=== PATIENT | male | born 1955 | race Two or more races ===

== ENCOUNTER 2018-11-28 18:18 | Emergency (ER) | payer MEDICARE ==
[~2018-11-28] VITALS: Ht 170.2 cm; Wt 86.2 kg
[2018-11-28 19:01] VITALS: BP 156/67
[2018-11-28] MEDS ORDERED: HYDROcodone/APAP 5/325MG 1 TAB TABLET PO ONE (19:30)
[2018-11-28] MEDS ORDERED: CEPH-264 PO (19:48)
[2018-11-28] MEDS ORDERED: HYDR-2761 PO (19:48)
--- NOTE | 2018-11-28 19:49 | PHYS DOC ---
Past Medical History Past Medical History: No Pertinent History (JOSEPH MUNSON APRN) Past Surgical History: No Surgical History (JOSEPH MUNSON APRN) Alcohol Use: None Drug Use: None (JOSEPH MUNSON APRN) Adult General Chief Complaint Chief Complaint: ANKLE PROBLEM HPI HPI Patient is a 63 year old male, accompanied by his significant other, with complaints of R ankle pain for the last 3 days. He reports that today he noticed a blister on his R medial heel and reports that the skin on his lower leg has been warm to touch and red. Pt states that the blister was caused by ill fitting high top sneakers that he had been wearing. Patient denies any purulent drainage sites, states that today the blister has drained some clear fluid onto a bandage. He denies any fevers or any known injury. Patient states he may have twisted his ankle 3 days ago when he was doing yard work but he is unsure of the specific injury. Currently, he rates his pain a 9 out of 10 on the pain scale, there are no alleviating factors, the pain is exacerbated with palpation and movement. (JOSEPH MUNSON APRN) Review of Systems Review of Systems Constitutional: Denies fever or chills [] Cardiovascular: No additional information not addressed in HPI [] Musculoskeletal: See HPI Integument: See HPI Neurologic: Denies headache, focal weakness or sensory changes [] Complete systems were reviewed and found to be within normal limits, except as documented in this note. (JOSEPH MUNSON APRN) Current Medications Current Medications Current Medications Medications (Trade) Dose Ordered Sig/Valentina Start Time Stop Time Status Last Admin Dose Admin Acetaminophen/ Hydrocodone Bitart (Lortab 5/325) 1 tab 1X ONCE 11/28/18 19:30 11/28/18 19:31 DC 11/28/18 19:38 1 TAB (YULI SIMEON DO) Allergies Allergies Allergies Coded Allergies Type Severity Reaction Last Updated Verified No Known Drug Allergies 11/28/18 No (YULI SIMEON DO) Physical Exam Physical Exam Constitutional: Well developed, well nourished, no acute distress, non-toxic appearance. [] HENT: Normocephalic, atraumatic, bilateral external ears normal, oropharynx moist, no oral exudates, nose normal. [] Eyes: conjunctiva normal, no discharge. [] Neck: Normal range of motion, no tenderness, supple, no stridor. [] Cardiovascular:Heart rate regular rhythm Lungs & Thorax: Respirations even and unlabored, no retractions, no respiratory distress[] Skin: Warm, dry; 1+ edema with erythema noted to R ankle and RLE consistent with cellulitis Extremities: no cyanosis, no clubbing, ROM intact, 1+ edema R ankle, RLE TTP Neurologic: Alert and oriented X 3, normal motor function, normal sensory function, no focal deficits noted. [] Psychologic: Affect normal, judgement normal, mood normal. [] (JOSEPH MUNSON APRN) Current Patient Data Vital Signs Vital Signs Date Time Temp Pulse Resp B/P (MAP) Pulse Ox O2 Delivery O2 Flow Rate FiO2 11/28/18 19:01 97.6 76 18 156/67 (96) 99 Room Air 97.6 (YULI SIMEON DO) EKG EKG [] (JOSEPH MUNSON APRN) Radiology/Procedures Radiology/Procedures [] R ankle x-ray negative for acute findings or fracture read by Dr. simeon. (JOSEPH MUNSON APRN) Course & Med Decision Making Course & Med Decision Making Pertinent Labs and Imaging studies reviewed. (See chart for details) dx: cellulitis ddx: ankle fracture Xray negative for acute findings or fracture. 1935-Spoke with patient and offered admission for IV antibiotics, pt would like to try outpatient tx at home. Pt advised to return to ER if fever develops or redness increases past the outline drawn by nurse in the ER. Prescriptions writ ten for keflex 500 QID and hydrocodone. []Patient verbalized an understanding of home care, medications, follow-up, and return to ED instructions and was in agreement with the plan of care. (JOSEPH MUNSON APRN) Dragon Disclaimer Dragon Disclaimer This electronic medical record was generated, in whole or in part, using a voice recognition dictation system. (JOSEPH MUNSON APRN) Departure Departure Impression: Primary Impression: Cellulitis of right lower extremity Disposition: HOME, SELF-CARE Condition: STABLE Referrals: NO PCP (PCP) Patient Instructions: Cellulitis, [id number] Additional Instructions: Fill prescription(s) and use as directed. Recommend application of ice, elevation, and rest of affected extremity. Follow-up with your primary care doctor next week, return to the ER if your symptoms worsen or if fever develops. Scripts Hydrocodone Bit/Acetaminophen (HYDROCODONE-APAP 5-325 ) 1 Tab Tablet 1 TAB PO PRN Q6HRS PRN for PAIN for 3 Days, #12 TAB 0 Refills Prov: JOSEPH MUNSON APRN 11/28/18 Cephalexin (KEFLEX) 500 Mg Capsule 500 MG PO QID for 7 Days, #28 CAP 0 Refills Prov: JOSEPH MUNSON APRN 11/28/18 Attending Signature Attending Signature I have reviewed the PA/FELTER TENNIS BALLS's note and plan of care. I was available for consultation as needed during the patient's visit in the emergency department. I agree with the clinical impression, plan, and disposition. (YULI SIMEON DO) JOSEPH MUNSON APRN Nov 28, 2018 19:49 YULI SIMEON DO Nov 28, 2018 22:26
--- NOTE | 2018-11-29 09:15 | RAD ---
EXAM: RIGHT ANKLE 3 VIEWS. HISTORY: Right ankle pain and swelling. COMPARISON: None. FINDINGS: Three views of the right ankle are obtained. No fractures are identified. Changes of a chronic ligamentous injury are suspected medially. There is soft tissue swelling medially. Alignment is normal. Joint spaces are maintained. There is a small plantar calcaneal spur. Atherosclerotic calcifications are noted. IMPRESSION: 1. Soft tissue swelling medially. No acute fracture. Electronically signed by: Roel Jenkins MD (11/29/2018 9:12 AM) [facility]
== END 2018-11-28 20:01 | disposition home or self-care (01) ==
LOC: ER 18:18
DX: L03.115 Cellulitis of right lower limb (principal)
CPT/HCPCS: 73610; 99284-25

== ENCOUNTER 2020-02-06 11:34 | Emergency (ER) | payer MEDICARE ==
[~2020-02-06] VITALS: Ht 170.2 cm; Wt 86.3 kg
[~2020-02-06 11:34] MED LIST: CEPH-264 PO; HYDR-2761 PO
[2020-02-06 11:55] VITALS: BP 166/80
[2020-02-06] MEDS ORDERED: POLY10DR RIGHTEYE (12:16)
[2020-02-06] MEDS ORDERED: HYDR-3164 PO (12:16)
--- NOTE | 2020-02-06 12:16 | PHYS DOC ---
Past Medical History Past Medical History: No Pertinent History Past Medical History cellulitis Past Surgical History: No Surgical History Smoking Status: Never Smoker Alcohol Use: None Drug Use: None General Adult EDM: Chief Complaint: EYE PROBLEMS HPI: HPI: Patient is a 64 year old who was working with wood and large piece of wood flew up and hit him in the right eye. This happened just prior to arrival. Patient complains of right a pain that is severe intensity and worse with light. Patient also has some blurry vision associated with this. Patient denies any other injuries. No loss of consciousness. Pain is described as a discomfort and nonradiating Review of Systems: Review of Systems: Constitutional: Well developed, well nourished, no acute distress, non-toxic appearance. HENT: No trismus, external ears normal Eyes: Right conjunctiva injected. Pupils equal round reactive to light. Extraocular motions are intact. The right eyelid was everted and no foreign body seen. Tetracaine and fluorescein was applied to the right eye. There is a negative Gallito sign. No evidence of globe rupture. There is a sizable irregular shaped corneal abrasion medially and on the middle of the cornea. Neck: Normal range of motion, no tenderness, supple, no stridor. Cardiovascular: Regular rate/rhythm, peripheral pulse intact, PRODUCTION TECHNOLOGIST intact Lungs & Thorax: No respiratory distress Abdomen: No distension Skin: Diffuse: Intact, no rash Back: Full ROM Extremities: Normal inspection, no edema Neurologic: Alert and oriented X 3, normal motor function, , no focal deficits noted. Psychologic: Affect normal, judgement normal, mood normal. Heart Score: Risk Factors: Risk Factors: DM, Current or recent (<one month) smoker, HTN, HLP, family history of CAD, obesity. Risk Scores: Score 0 - 3: 2.5% MACE over next 6 weeks - Discharge Home Score 4 - 6: 20.3% MACE over next 6 weeks - Admit for Clinical Observation Score 7 - 10: 72.7% MACE over next 6 weeks - Early Invasive Strategies Current Medications: Current Medications Medications (Trade) Dose Ordered Sig/Valentina Start Time Stop Time Status Last Admin Dose Admin Fluorescein Sodium (Ful-Za) 1 strip 1X ONCE 02/06/20 12:30 02/06/20 12:31 02/06/20 12:07 1 STRIP Tetracaine HCl (Tetracaine) 1 drop 1X ONCE 02/06/20 12:30 02/06/20 12:31 02/06/20 12:07 1 DROP Allergies: Allergies: Allergies Coded Allergies Type Severity Reaction Last Updated Verified I S O L A T I O N *CONTACT* Allergy Unknown 12/08/18 Yes No Known Medication Allergies Allergy Unknown 12/08/18 Yes Physical Exam: PE: Constitutional: Well developed, well nourished, no acute distress, non-toxic appearance. [] HENT: Normocephalic, atraumatic, bilateral external ears normal, oropharynx moist, no oral exudates, nose normal. [] Eyes: PERRLA, EOMI, conjunctiva normal, no discharge. [] Neck: Normal range of motion, no tenderness, supple, no stridor. [] Cardiovascular:Heart rate regular rhythm, no murmur [] Lungs & Thorax: Bilateral breath sounds clear to auscultation [] Abdomen: Bowel sounds normal, soft, no tenderness, no masses, no pulsatile masses. [] Skin: Warm, dry, no erythema, no rash. [] Back: No tenderness, no CVA tenderness. [] Extremities: No tenderness, no cyanosis, no clubbing, ROM intact, no edema. [] Neurologic: Alert and oriented X 3, normal motor function, normal sensory function, no focal deficits noted. [] Psychologic: Affect normal, judgement normal, mood normal. [] EKG: EKG: [] Radiology/Procedures: Radiology/Procedures: [] Course & Med Decision Making: Course & Med Decision Making Pertinent Labs and Imaging studies reviewed. (See chart for details) [] 64-year-old male presents with a corneal abrasion. No evidence of globe rupture. Patient will be placed on topical antibiotics and pain medicine. Return precautions given. Patient will need to follow-up with industrial locomotive operator. Kimani Disclaimer: Kimani Disclaimer: This electronic medical record was generated, in whole or in part, using a voice recognition dictation system. Departure Departure Impression: Primary Impression: Injury of conjunctiva and corneal abrasion of right eye w/o FB Disposition: 01 HOME, SELF-CARE Condition: STABLE Referrals: NO PCP (PCP) Daysi MORA MD 2-3 days Patient Instructions: Eye - Corneal Abrasion Additional Instructions: EMERGENCY DEPARTMENT GENERAL DISCHARGE INSTRUCTIONS THANK YOU for coming to [facility] Emergency Department (ED) today and trusting us with your care. We trust that you had a positive experience in our Emergency Department. If you wish to speak to the department Management you can contact the export traffic department manager at . YOUR FOLLOW UP INSTRUCTIONS ARE FOLLOWS: Do you have a private doctor? If you do not have a private doctor, please ask for a resource list of physicians or clinics that may be able to assist you with follow up care. The Emergency Physician has interpreted your x-rays. The X-ray specialist will also review them. If there is a change in the findings you will be notified in 48 hours when at all possible. A lab test or lab culture may have been done, your results will be reviewed and you will be notified if you need a change in treatment. ADDITIONAL INSTRUCTIONS AND INFORMATION Your care today has been supervised by a physician who is specially trained in emergency care. Many problems require more than one evaluation for a complete diagnosis and treatment. We recommend that you schedule your follow up appointment as recommended to ensure complete treatment of your illness or injury. If you are unable to obtain follow up care and continue to have a problem, or if your condition worsens we recommend that you return to the ED. We are not able to safely determine your condition over the phone nor are we able to give sound medical advice over the phone. For these safety reasons, if you call for medical advice we will ask you to come to the ED for further evaluation If you have any questions regarding these discharge instructions please call the ED at . SAFETY INFORMATION In the interest of safety, wellness, and injury prevention; we encourage you to wear your seatbelt, if you smoke; quit smoking, and we encourage your family to use protective helmet for bicycling and other sporting events that present an increased risk for head injury. IF YOUR SYMPTOMS WORSEN OR NEW SYMPTOMS DEVELOP, OR YOU HAVE CONCERNS ABOUT YOUR CONDITION; OR IF YOUR CONDITION WORSENS WHILE YOU ARE WAITING FOR YOUR FOLLOW UP APPOINTMENT; EITHER CONTACT YOUR PRIMARY CARE DOCTOR, THE PHYSICIAN WHOSE NAME AND NUMBER YOU WERE GIVEN, OR RETURN TO THE ED IMMEDIATELY. Scripts Hydrocodone/Apap 5-325 (NORCO 5-325 TABLET) 1 Each Tablet 1-2 EACH PO PRN Q6HRS PRN for PAIN, #15 as needed for pain Prov: JONAS MANCIA MD 02/06/20 Polymyxin B Sulf/Trimethoprim (POLYTRIM EYE DROPS) 10 Ml Drops 1 DROP RIGHTEYE Q6HRS, #10 ML Prov: JONAS MANCIA MD 02/06/20 Justicifation of Admission Dx: Justifications for Admission: Justification of Admission Dx: N/A JONAS MANCIA MD Feb 06, 2020 12:16
[2020-02-06] MEDS ORDERED: TETRACAINE 0.5% OPHTH SOLUTION 4ML BOTTLE. OD ONE (12:30)
[2020-02-06] MEDS ORDERED: FLUORESCEIN OPHTH TEST STRIP. OD ONE (12:30)
== END 2020-02-06 12:21 | disposition home or self-care (01) ==
LOC: ER 11:34
DX: S05.01XA Injury of conjunctiva and corneal abrasion without foreign body, right eye, initial encounter (principal); H53.8 Other visual disturbances; Y29.XXXA Contact with blunt object, undetermined intent, initial encounter; Y93.89 Activity, other specified; Y92.89 Other specified places as the place of occurrence of the external cause; Y99.0 Civilian activity done for income or pay
CPT/HCPCS: 99283

== ENCOUNTER 2020-06-24 09:05 | Emergency (ER) | payer MEDICAID, MEDICARE ==
[~2020-06-24] VITALS: Ht 170.2 cm; Wt 84.0 kg
[~2020-06-24 09:05] MED LIST changes: +HYDR-3164 PO; +POLY10DR RIGHTEYE
--- NOTE | 2020-06-24 09:39 | RAD ---
EXAM: Left shoulder, 3 views. HISTORY: Pain. COMPARISON: None. FINDINGS: 3 views of the left shoulder obtained. There is no fracture, dislocation or subluxation. IMPRESSION: No acute osseous finding. Electronically signed by: Florencia Moya MD (06/24/2020 9:34 AM) [id number]
--- NOTE | 2020-06-24 09:57 | PHYS DOC ---
Past Medical History Past Medical History: Hypertension, Other Additional Past Medical Histor: cellulitis Past Surgical History right ankle Smoking Status: Never Smoker Alcohol Use: None Drug Use: None General Adult EDM: Chief Complaint: SHOUDLER HPI: HPI: 65-year-old male presenting with left shoulder pain. He describes the pain is a throbbing aching pain. He has been sleeping on a cot over the past week. This morning he reports muscular stiffness of the shoulder and neck musculature. He denies any chest pain or shortness of breath. He does have a history of hypertension and takes lisinopril hydrochlorothiazide combo pill but has been not taking it for about 6 months. He denies nausea vomiting or diaphoresis. The pain is nonradiating. Review of systems negative for abdominal pain vomiting diaphoresis fevers or chills. All other review of systems negative. ED course: 65-year-old male presenting with left shoulder pain. X-rays unremarkable. His blood pressure was quite high on arrival. We gave him some lisinopril. EKG and blood work ordered. Blood work unremarkable. EKG shows sinus rhythm with a regular rate. ST segments show mild nonspecific repolariz ation abnormalities in lead V2 and V3. Not suggestive of acute ischemia. Blood work unremarkable. Troponin within normal limits. On reevaluation the patient continues to not have any chest pain. His pain is in the musculature which is tender to palpation along the trapezius muscle. We will discharge him with some oral hydrocodone and Flexeril and have him follow-up with his doctor in 1 to 2 days. He is to return for worsening pain or the development of new chest pain or shortness of breath or any other concerns. Heart Score: Risk Factors: Risk Factors: DM, Current or recent (<one month) smoker, HTN, HLP, family history of CAD, obesity. Risk Scores: Score 0 - 3: 2.5% MACE over next 6 weeks - Discharge Home Score 4 - 6: 20.3% MACE over next 6 weeks - Admit for Clinical Observation Score 7 - 10: 72.7% MACE over next 6 weeks - Early Invasive Strategies Current Medications: Current Medications Medications (Trade) Dose Ordered Sig/Valentina Start Time Stop Time Status Last Admin Dose Admin Lisinopril (Prinivil) 10 mg 1X ONCE 06/24/20 10:00 06/24/20 10:01 UNV Allergies: Allergies: Allergies Coded Allergies Type Severity Reaction Last Updated Verified I S O L A T I O N *CONTACT* Allergy Unknown 12/08/18 Yes No Known Medication Allergies Allergy Unknown 12/08/18 Yes Physical Exam: PE: Constitutional: Well developed, well nourished, no acute distress, non-toxic appearance. [] HENT: Normocephalic, atraumatic, bilateral external ears normal, oropharynx moist, no oral exudates, nose normal. [] Eyes: PERRLA, EOMI, conjunctiva normal, no discharge. [] Neck: Normal range of motion, no tenderness, supple, no stridor. [] Cardiovascular:Heart rate regular rhythm, no murmur [] Lungs & Thorax: Bilateral breath sounds clear to auscultation [] Abdomen: Bowel sounds normal, soft, no tenderness, no masses, no pulsatile masses. [] Skin: Warm, dry, no erythema, no rash. [] Back: No tenderness, no CVA tenderness. [] Extremities: The patient's left shoulder has tenderness along the musculature of the trapezius muscle. Nontender on the bony prominences. No traumatic injuries. No abrasions lacerations or ecchymosis. Nontender clavicle. Palpable pulse distally with 2-second cap refill. Normal motor and sensory function of the hand. Nontender elbow. Nontender wrist. The remainder the extremities are nontender with normal range of motion and neurovascularly intact. Neurologic: Alert and oriented X 3, normal motor function, normal sensory function, no focal deficits noted. [] Psychologic: Affect normal, judgement normal, mood normal. [] Current Patient Data: Vital Signs: Vital Signs Date Time Temp Pulse Resp B/P (MAP) Pulse Ox O2 Delivery O2 Flow Rate FiO2 06/24/20 09:14 97.9 80 16 224/105 (144) 99 Room Air 97.9 EKG: EKG: [] Radiology/Procedures: Radiology/Procedures: [] Course & Med Decision Making: Course & Med Decision Making Pertinent Labs and Imaging studies reviewed. (See chart for details) [] Dragon Disclaimer: Dragon Disclaimer: This electronic medical record was generated, in whole or in part, using a voice recognition dictation system. Departure Departure Impression: Primary Impression: Left shoulder pain Disposition: 01 DC HOME SELF CARE/HOMELESS Condition: STABLE Referrals: JAYDE VASQUEZ D.O. (PCP) Patient Instructions: Shoulder Pain Additional Instructions: Follow-up with your primary physician in 1 to 2 days. Return to the emergency department if you have any new or concerning findings. Scripts Cyclobenzaprine Hcl (CYCLOBENZAPRINE HCL) 5 Mg Tablet 1 TAB PO PRN BID PRN for PAIN, #10 TAB Prov: JERRY RUIZ MD 06/24/20 Hydrocodone Bit/Acetaminophen (HYDROCODONE-APAP 5-325 ) 1 Tab Tablet 1 TAB PO PRN Q8HRS PRN for SEVERE PAIN, #8 TAB 0 Refills Prov: JERRY RUIZ MD 06/24/20 JERRY RUIZ MD Jun 24, 2020 09:57
[2020-06-24] MEDS ORDERED: LISINOPRIL 10 MG TABLET PO ONE (10:00)
--- NOTE | 2020-06-24 10:12 | RAD ---
EXAM: Chest, single view. HISTORY: Chest pain. COMPARISON: None. FINDINGS: A frontal view of the chest is obtained. There is no infiltrate, pleural effusion or pneumo thorax. The heart is normal in size. IMPRESSION: No acute pulmonary finding. Electronically signed by: Florencia Moya MD (06/24/2020 10:08 AM) [id number]
[2020-06-24 11:00] LABS: BASO % 1 % (0-3); EOS # 0.2 x10^3/uL (0.0-0.7); EOS % 3 % (0-3); HEMATOCRIT 44.5 % (39.0-53.0); LYMPH # 0.9 x10^3/uL (1.0-4.8); LYMPH % 13 % (24-48); MEAN CORPUSCULAR HEMOGLOBIN 31 pg (25-35); MEAN CORPUSCULAR HGB CONC 34 g/dL (31-37); MEAN CORPUSCULAR VOLUME 91 fL (79-100); MONO # 0.4 x10^3/uL (0.0-1.1); MONO % 5 % (0-9); NEUT # 5.4 x10^3/uL (1.8-7.7); NEUT % 78 % (31-73); PLATELET COUNT 168 x10^3/uL (140-400); RED BLOOD COUNT 4.89 x10^6/uL (4.30-5.70)
[2020-06-24 11:11] LABS: CALCIUM 9.1 mg/dL (8.5-10.1); CREATININE 0.8 mg/dL (0.7-1.3); GFR 96.7
[2020-06-24 11:15] LABS: ALBUMIN 3.5 g/dL (3.4-5.0); DIRECT BILIRUBIN 0.1 mg/dL (0.0-0.2); TOTAL BILIRUBIN 0.6 mg/dL (0.2-1.0); TOTAL PROTEIN 7.2 g/dL (6.4-8.2)
[2020-06-24 11:30] VITALS: BP 179/91
[2020-06-24] MEDS ORDERED: CYCL5TAB PO (11:32)
[2020-06-24] MEDS ORDERED: HYDR-2761 PO (11:32)
--- NOTE | 2020-06-24 15:31 | EKG ---
[facility] [address] [place] [address] Test Date: 2020-06-24 Test Time: 10:04:18 Pat Name: REEMA MCCALL Department: Room: Gender: M Statistician: : 1955 Requested By: JERRY RUIZ Order Number: [id number] Reading MD: Measurements Intervals Baker Rate: 66 P: 42 [place]: 154 QRS: 22 QRSD: 82 T: 48 QT: 372 QTc: 392 Interpretive Statements SINUS RHYTHM QRS(T) CONTOUR ABNORMALITY CONSIDER ANTEROLATERAL MYOCARDIAL DAMAGE POSSIBLY ABNORMAL ECG RI6.01 No previous ECG available for comparison
== END 2020-06-24 12:10 | disposition home or self-care (01) ==
LOC: ER 09:05
DX: M25.512 Pain in left shoulder (principal); I10 Essential (primary) hypertension; Z98.890 Other specified postprocedural states; Z88.8 Allergy status to other drugs, medicaments and biological substances
CPT/HCPCS: 36415; 71045; 73030; 80048; 80076; 83690; 84484; 85025; 93005; 99285

== ENCOUNTER → 2020-12-09 | Outpatient (CLI) | payer MEDICARE ==
[~2020-12-09] MED LIST changes: +CYCL5TAB PO; +LISI1TAB37 PO; +METF-658 PO; +OXYC1TAB19 PO
== END ==
LOC: LAB 10:10
PROVIDERS: ATTEND Orthopaedic Surgery
DX: Z01.812 Encounter for preprocedural laboratory examination (principal); Z20.822 Contact with and (suspected) exposure to COVID-19
CPT/HCPCS: U0003; U0005

== ENCOUNTER 2020-12-13 08:18 | Day surgery (SDC) | payer MEDICARE ==
[~2020-12-13] VITALS: Ht 170.2 cm; Wt 81.0 kg
[~2020-12-13 08:18] MED LIST changes: +BUPIVACAINE MPF 0.5% 30 ML VIAL. ONE; +DEXAMETHASONE SOD PHOS 4 MG/ML VIAL ONE; +EPINEPHrine VIAL 30 MG/30 ML VIAL ONE; +HYDROmorphone 2 MG/ML VIAL IVP PRN; +IV RINGERS,LACTATED 1000ML 1,000 ML IV SCH; +LIDOCAINE 1% PF 2 ML VIAL. ONE; +LIDOCAINE 2% PF 5 ML VIAL. ONE; +MIDAZOLAM HCL/PF 2 MG/2 ML VIAL. ONE; +MORPHINE SULFATE 2 MG/ML INJ. IVP PRN; +ONDANSETRON PF 4 MG/2 ML VIAL. ONE; -OXYC1TAB19 PO; +PROCHLORPERAZINE 10 MG/2 ML VIAL. IVP PRN; +PROPOFOL 10 MG/ML (20ML) VIAL. IV ONE; +SEVOFLURANE 61 TO 120 MINUTES. IH ONE; +fentaNYL PF VIAL 100 MCG/2 ML VIAL IVP PRN
[2020-12-13 08:32] VITALS: BP 146/79
[2020-12-13] MEDS ORDERED: DEXAMETHASONE SOD PHOS 20 MG/5 ML VIAL. ONE (08:33)
[2020-12-13] MEDS ORDERED: INSULIN LISPRO 100 UNIT/ML 3ML VIAL for OP,RR ONLY. SQ PRN (08:45)
[2020-12-13] MEDS ORDERED: INSULIN LISPRO 100 UNIT/ML 3ML VIAL for OP,RR ONLY. SQ ONE (08:45)
[2020-12-13] MEDS ORDERED: OXYC1TAB19 PO (08:49)
--- NOTE | 2020-12-13 08:50 | DISCH ---
DISCHARGE INSTRUCTIONS Condition on Discharge Condition on Discharge: Stable Activity After Discharge Activity Instructions for Disc: Other, see below (May hang arm down like a pendulum or gently stretch with the other arm or with physical therapy, no active lifting of the elbow away from the body) Weight Bearing Status after Di: Non weight bearing Diet after Discharge Diet after Discharge: Diabetic No Calorie Level Wound Incision Care Wound/Incision Care: Ice to area for comfort, Change dressing (Remove dressing in 2 days may then shower no soaking until sutures removed) Community/Resources/Services Services at Discharge: PT EVALUATE & TREAT (Passive range of motion of left shoulder only for 4 weeks then may start active range of motion) Contacting the after DC Call your doctor for: Concerns you may have Follow-Up Follow up with: Dr. Ferrara or Boris 7 to 10 days LETA FERRARA MD Dec 13, 2020 08:50
[2020-12-13] MEDS ORDERED: oxyCODONE/APAP 7.5/325 1 TAB TABLET PO ONE (10:45)
[2020-12-13 11:55] VITALS: BP 122/71
--- NOTE | 2020-12-13 16:42 | PDOC4 ---
Operative Note Operative Note Date of surgery: 12/13/2020 Preoperative diagnosis: Left rotator cuff tear expected high-grade near full- thickness Postoperative diagnosis: Same with labral fraying biceps irritation without si gnificant compromise partial-thickness subscapularis tear Operative procedure: Left shoulder arthroscopy arthroscopic rotator cuff repair and debridement superior anterior labrum and subscapularis Surgeon: Josias Assist: Ramses Moore first coat sander Anesthesia: General plus scalene block Complications: None Operative indications: Please see my orthopedic clinic note for detailed operative indications and note that he has ongoing left shoulder pain and weakness unresponsive to nonoperative treatment and a very high-grade near full- thickness rotator cuff tear noted on MRI. I had gone over with him risks benefits postoperative course of surgical treatment including the expected postoperative restrictions possibility of nonhealing infection nerve or blood v essel damage medical or other anesthetic complications among others. All his questions were answered he wishes to proceed with surgical evaluation and treatment Operative text: Patient was identified procedure verified patient placed in supine position on the operating table. After adequate amounts of general anesthesia plus a pre-existing scalene block were obtained he was placed in the decubitus position left side up all bony prominences were well-padded shoulder was examined under anesthesia found a full range of motion no instability and the shoulder was then prepped and draped in standard sterile fashion with a total of 10 pounds of traction. After timeout was performed patient procedure identified and verified a standard posterior portal established an anterior portal established using spinal needle localization and the shoulder joint was systematically examined. He was found to have labral fraying superiorly extending anteriorly and posteriorly which was trimmed back to stable tissue with the arthroscopic shaver and bipolar electrocautery. The biceps anchor was intact and showed no peelback aside from some mild irritation. The biceps was taken into the joint from the groove and likewise noted to have no significant irritation or fraying. Subscapularis had a partial tear which was debrided back to stable tissue. There was a normal bare area of the humerus but rotator cuff was noted to have a very high-grade near full-thickness tear of the distal supraspinatus which was probed from the subacromial space and noted to be about 90% full-thickness. Capsuloligamentous structures and glenohumeral joint were normal in appearance subacromial space was then entered and bursa was cleared to allow visualization rotator cuff footprint was debrided back to stable bleeding bony tissue. A total of 2 double loaded juggernaut anchors were placed along the medial aspect of the rotator cuff footprint and sutures were placed in a simple fashion and brought over with mild tension and noted to have excellent reduction to the rotator cuff footprint. A double row repair was then carried out with a Crispify knotless peek 4.5 anchor and noted to have a excellent watertight repair examined in all degrees of internal/external rotation. Joint was drained of arthroscopic fluid portals closed with nylon suture sterile dressings were applied patient was placed in a shoulder immobilizer return to recovery room stable condition having tolerated procedure well. Ramses dior helped with patient positioning prepping draping retraction closure and dressings LETA THOMASON MD Dec 13, 2020 16:42
== END 2020-12-13 12:36 | disposition home or self-care (01) ==
LOC: SURG 08:18
PROVIDERS: ATTEND Orthopaedic Surgery
DX: M75.102 Unspecified rotator cuff tear or rupture of left shoulder, not specified as traumatic (principal); I10 Essential (primary) hypertension; E66.9 Obesity, unspecified; E11.9 Type 2 diabetes mellitus without complications; Z79.84 Long term (current) use of oral hypoglycemic drugs; Z79.899 Other long term (current) drug therapy; Z98.890 Other specified postprocedural states
CPT/HCPCS: 29827; 64415; 82962; A4565; A4930; C1713; J0171; J0690; J1100; J1815; J2250; J2405; J2704; J3490

== ENCOUNTER 2021-02-09 09:24 | Emergency (ER) | payer MEDICARE ==
[~2021-02-09] VITALS: Ht 170.2 cm; Wt 84.9 kg
[~2021-02-09 09:24] MED LIST changes: -BUPIVACAINE MPF 0.5% 30 ML VIAL. ONE; -DEXAMETHASONE SOD PHOS 4 MG/ML VIAL ONE; -EPINEPHrine VIAL 30 MG/30 ML VIAL ONE; -HYDROmorphone 2 MG/ML VIAL IVP PRN; -IV RINGERS,LACTATED 1000ML 1,000 ML IV SCH; -LIDOCAINE 1% PF 2 ML VIAL. ONE; -LIDOCAINE 2% PF 5 ML VIAL. ONE; -MIDAZOLAM HCL/PF 2 MG/2 ML VIAL. ONE; -MORPHINE SULFATE 2 MG/ML INJ. IVP PRN; -ONDANSETRON PF 4 MG/2 ML VIAL. ONE; +OXYC1TAB19 PO; -PROCHLORPERAZINE 10 MG/2 ML VIAL. IVP PRN; -PROPOFOL 10 MG/ML (20ML) VIAL. IV ONE; -SEVOFLURANE 61 TO 120 MINUTES. IH ONE; -fentaNYL PF VIAL 100 MCG/2 ML VIAL IVP PRN
[2021-02-09 09:32] VITALS: BP 171/77
--- NOTE | 2021-02-09 09:35 | ED.ADGEN ---
Past Medical History Past Medical History: Hypertension, Other Additional Past Medical Histor: cellulitis Smoking Status: Never Smoker Alcohol Use: None Drug Use: None General Adult EDM: Chief Complaint: BACK PAIN OR INJURY HPI: HPI: Patient is a 66-year-old male who arrives via EMS complaining of right-sided low back and hip pain. Patient states 2 days previously he was pushing a truck with a flat tire and felt a pop. Patient states since that time he has had progressive pain in the right buttock region with radiation down into the right thigh. Patient states he contacted paramedics because he had difficulty walking. Despite this the patient denies any blunt trauma to the region. He further denies any saddle anesthesia, abdominal pain or change in his bowel/bladder habits. He is awake, alert and nontoxic-appearing. Review of Systems: Review of Systems: Constitutional: Denies fever or chills. [] Eyes: Denies change in visual acuity. [] HENT: Denies nasal congestion or sore throat. [] Respiratory: Denies cough or shortness of breath. [] Cardiovascular: Denies chest pain or edema. [] GI: Denies abdominal pain, nausea, vomiting, bloody stools or diarrhea. [] : Denies dysuria. [] Musculoskeletal: Denies back pain or joint pain. [] Integument: Denies rash. [] Neurologic: Denies headache, focal weakness or sensory changes. [] Endocrine: Denies polyuria or polydipsia. [] Lymphatic: Denies swollen glands. [] Psychiatric: Denies depression or anxiety. [] Family History: Family History: Noncontributory Allergies: Allergies: Allergies Coded Allergies Type Severity Reaction Last Updated Verified No Known Medication Allergies Allergy Unknown 12/12/20 Yes Physical Exam: PE: Constitutional: Well developed, well nourished, no acute distress, non-toxic appearance. [] HENT: Normocephalic, atraumatic, bilateral external ears normal, oropharynx moist, no oral exudates, nose normal. [] Eyes: PERRLA, EOMI, conjunctiva normal, no discharge. [] Neck: Normal range of motion, no tenderness, supple, no stridor. [] Cardiovascular:Heart rate regular rhythm, no murmur [] Lungs & Thorax: Bilateral breath sounds clear to auscultation [] Abdomen: Bowel sounds normal, soft, no tenderness, no masses, no pulsatile masses. [] Skin: Warm, dry, no erythema, no rash. [] Back: No tenderness, no CVA tenderness. [] Extremities: Tenderness palpation of the right hip and buttock. No cyanosis, no clubbing, ROM intact, no edema. [] Neurologic: Alert and oriented X 3, normal motor function, normal sensory function, no focal deficits noted. [] Psychologic: Affect normal, judgement normal, mood normal. [] Current Patient Data: Vital Signs: Vital Signs Date Time Temp Pulse Resp B/P (MAP) Pulse Ox O2 Delivery O2 Flow Rate FiO2 02/09/21 09:32 98.0 67 20 171/77 (88) 97 Room Air 98.0 EKG: EKG: [] Heart Score: C/O Chest Pain: No Risk Factors: Risk Factors: DM, Current or recent (<one month) smoker, HTN, HLP, family history of CAD, obesity. Risk Scores: Score 0 - 3: 2.5% MACE over next 6 weeks - Discharge Home Score 4 - 6: 20.3% MACE over next 6 weeks - Admit for Clinical Observation Score 7 - 10: 72.7% MACE over next 6 weeks - Early Invasive Strategies Radiology/Procedures: Radiology/Procedures: [] Impression: [facility] [address] [place], [place] [id number] IMAGING REPORT Signed PATIENT: REEMA MCCALL ACCOUNT: [id number] : 12/12/1954 LOCATION: ER AGE: 66 SEX: M EXAM STATUS: REG ER ORD. PHYSICIAN: AURELIO GILES DO REASON: right sided pain, unable to bear weight on right leg x 1 day PROCEDURE: PELVIS EXAM: Pelvis, single view. HISTORY: Pain. Inability to bear weight. COMPARISON: None. FINDINGS: A frontal view of the pelvis is obtained. There is no fracture, dislocation or subluxation. There is sacralization of the left L5 transverse process resulting in articulation with the underlying sacrum, a normal variant. IMPRESSION: No acute osseous finding. Electronically signed by: Florencia Mayse MD (02/09/2021 9:53 AM) [id number] DICTATED and SIGNED BY: FLORENCIA MAYES MD DATE: 02/09/21 [id number] Course & Med Decision Making: Course & Med Decision Making Pertinent Labs and Imaging studies reviewed. (See chart for details) [] Kimani Disclaimer: Kimani Disclaimer: This electronic medical record was generated, in whole or in part, using a voice recognition dictation system. Departure Departure Impression: Primary Impression: Sciatica Disposition: HOME / SELF CARE / HOMELESS Condition: STABLE Referrals: JAYDE VASQUEZ D.O. (PCP) Patient Instructions: Sciatica Scripts Cyclobenzaprine Hcl (CYCLOBENZAPRINE HCL) 5 Mg Tablet 1 TAB PO TID for 7 Days, #21 TAB Prov: AURELIO GILES DO 02/09/21 Prednisone (PREDNISONE) 50 Mg Tablet 1 TAB PO DAILY for 5 Days, #5 TAB Prov: AURELIO GILES DO 02/09/21 AURELIO GILES DO Feb 09, 2021 09:35
--- NOTE | 2021-02-09 09:55 | RAD ---
EXAM: Pelvis, single view. HISTORY: Pain. Inability to bear weight. COMPARISON: None. FINDINGS: A frontal view of the pelvis is obtained. There is no fracture, dislocation or subluxation. There is sacralization of the left L5 transverse process resulting in articulation with the underlyi ng sacrum, a normal variant. IMPRESSION: No acute osseous finding. Electronically signed by: Florencia Moya MD (02/09/2021 9:53 AM) [id number]
[2021-02-09] MEDS ORDERED: CYCL5TAB PO (10:02)
[2021-02-09] MEDS ORDERED: TRAM-48 PO ×4 (10:02→10:11)
[2021-02-09] MEDS ORDERED: PRED50TA PO (10:02)
== END 2021-02-09 10:35 | disposition home or self-care (01) ==
LOC: ER 09:24 → EDBD 09:24 → ER 10:35
DX: M54.41 Lumbago with sciatica, right side (principal); I10 Essential (primary) hypertension
CPT/HCPCS: 72170; 99283